=== PATIENT | male | born 1965 | race Caucasian/White ===

== ENCOUNTER 2017-09-28 11:05 | Inpatient (IN) | payer MEDICARE, MEDICAID ==
--- NOTE | 2017-09-28 11:30 | ED ---
General Adult HPI - General Chief complaint: Psychiatric Symptoms Stated complaint: Mental health Time Seen by Provider: 09/28/17 11:16 Source: patient, police Mode of arrival: ambulatory - History of Present Illness Initial comments: The patient is a 51-year-old male with a history of bipolar depression who presents in police custody after being seen at [facility]. The patient allegedly became angry with her staff when he was told that he would not be seeing the therapist that he was initially told he would see. The patient presents with a petition from the psychiatrist at [facility]. Per [place], the patient never became aggressive. The patient states he is new to the area and is trying to get established for mental health. Patient states that normally he is prescribed Seroquel however has not been taking it for the last 4 months. The patient denies any suicidal or homicidal ideations. He denies any visual or auditory hallucinations. Patient denies any alcohol or drug use. - Related Data Home Medications Medication Instructions Recorded Confirmed No Known Home Medications [No 09/28/17 09/28/17 Known Home Medications] Allergies Allergy/AdvReac Type Severity Reaction Status Date / Time No Known Allergies Allergy Verified 09/28/17 12:28 Review of Systems ROS Statement: Those systems with pertinent positive or pertinent negative responses have been documented in the HPI. ROS Other: All systems not noted in ROS Statement are negative. Psychiatric: Reports: as per HPI Past Medical History Past Medical History: No Reported History History of Any Multi-Drug Resistant Organisms: None Reported Additional Past Surgical History / Comment(s): RIGHT HAND SX Past Psychological History: Bipolar Smoking Status: Never smoker Past Alcohol Use History: Occasional Past Drug Use History: None Reported General Exam Limitations: no limitations General appearance: alert, in no apparent distress Head exam: Present: atraumatic, normocephalic Eye exam: Present: normal appearance ENT exam: Present: normal exam Neck exam: Present: normal inspection Respiratory exam: Present: normal lung sounds bilaterally Cardiovascular Exam: Present: regular rate, normal rhythm GI/Abdominal exam: Present: soft Rectal exam: Present: deferred Neurological exam: Present: alert, oriented X3, CN II-XII intact, normal gait Psychiatric exam: Present: normal affect, normal mood Skin exam: Present: warm, dry, intact Course Vital Signs 09/28/17 11:06 Temperature 98 F Pulse Rate 84 Respiratory 18 Rate Blood Pressure 164/73 O2 Sat by Pulse 96 Oximetry Medical Decision Making - Medical Decision Making Patient presents for psychiatric evaluation with a petition from [facility]. He arrives in police custody. On initial evaluation, the patient is calm and cooperative. She denies suicidal or homicidal ideations. He is not having any auditory or visual hallucinations. 1:58 PM Patient was evaluated by behavioral health. I was made aware that the patient also arrived with a clinical certificate from the psychiatrist at [facility]. The decision was made to admit the patient to inpatient psychiatry for further evaluation and treatment. All parties are agreeable with this care plan. Patient was transferred out of the emergency department stable condition. - Lab Data Lab Results 09/28/17 Range/Units 11:33 Urine Opiates Screen Not Detected (NotDetected) Ur Oxycodone Screen Not Detected (NotDetected) Urine Methadone Screen Not Detected (NotDetected) Ur Propoxyphene Screen Not Detected (NotDetected) Ur Barbiturates Screen Not Detected (NotDetected) U Tricyclic Antidepress Not Detected (NotDetected) Ur Phencyclidine Scrn Not Detected (NotDetected) Ur Amphetamines Screen Not Detected (NotDetected) U Methamphetamines Scrn Not Detected (NotDetected) U Benzodiazepines Scrn Not Detected (NotDetected) Urine Cocaine Screen Not Detected (NotDetected) U Marijuana (THC) Screen Not Detected (NotDetected) Disposition Clinical Impression: Bipolar disorder Disposition: ADMITTED IP TO THIS [facility] Condition: Good Is patient prescribed a controlled substance at discharge?: No Decision to Admit Reason: Admit from EC - Out of Hospital Transfer - Req. Specs Out of Hospital Transfer - Requested Specifics: Psychiatric Non-ICU
[2017-09-28 12:17] LABS: Amphetamine Screen,Urine Not Detected (NotDetected); Barbiturate Screen,Urine Not Detected (NotDetected); Benzodiazepines Screen,Urine Not Detected (NotDetected); Cocaine Screen,Urine Not Detected (NotDetected); Methadone Screen, Urine Not Detected (NotDetected); Opiate Screen,Urine Not Detected (NotDetected); Phencyclidine Screen,Urine Not Detected (NotDetected); Tricyclic Antidepressant,Urine Not Detected (NotDetected); Urn Cannabinoid Scrn Not Detected (NotDetected)
[2017-09-28 12:18] LABS: Oxycodone Screen, Urine Not Detected (NotDetected)
[2017-09-28] MEDS ORDERED: MAG HYDROX/AL HYDROX/SIMETH 30 ML CUP PO PRN (13:33)
[2017-09-28] MEDS ORDERED: ACETAMINOPHEN TAB 325 MG TAB PO PRN (13:33)
[2017-09-28] MEDS ORDERED: MAGNESIUM HYDROXIDE 2,400 MG/10 ML CUP PO PRN (13:33)
[2017-09-28 14:05] LABS: Appearance,Urine Clear (Clear); Bilirubin,Urine Negative (Negative); Blood,Urine Negative (Negative); Color,Urine Yellow; Glucose,Urine (UA) Negative (Negative); Ketones,Urine Negative (Negative); Leukocyte Esterase,Urine Negative (Negative); Nitrite,Urine Negative (Negative); Protein,Urine Trace (Negative); Specific Gravity,Urine 1.025 (1.001-1.035); Urobilinogen,Urine <2.0 mg/dL (<2.0)
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
--- NOTE | 2017-09-28 16:40 | P.HPIM ---
History of Present Illness H&P Date: 09/28/17 Chief Complaint: Anger problem 51-year-old male with no past medical history, was at [facility] today, got very angry because a different therapist was coming to see him. He was petitioned by a psychiatrist over at [facility] and transferred to [facility] for further management. He denied having any medical problems in the past except hypertension, he was once prescribed a blood pressure medicine but didn't take it for too long because of side effects. Earlier today he was told that his blood pressure was high. He denied any heart or lung condition. No recent illness, nausea or vomiting, chest pain or abdominal pain, no diarrhea or urinary symptoms. Review of Systems 12 point review of system performed, negative except HPI Past Medical History Past Medical History: No Reported History History of Any Multi-Drug Resistant Organisms: None Reported Past Surgical History: No Surgical Hx Reported Additional Past Surgical History / Comment(s): RIGHT HAND SX Smoking Status: Never smoker Past Alcohol Use History: Occasional Past Drug Use History: None Reported Medications and Allergies Home Medications Medication Instructions Recorded Confirmed Type No Known Home Medications [No 09/28/17 09/28/17 History Known Home Medications] Allergies Allergy/AdvReac Type Severity Reaction Status Date / Time No Known Allergies Allergy Verified 09/28/17 12:28 Physical Exam Vitals: Vital Signs Temp Pulse Pulse Resp BP BP Pulse Ox 09/28/17 14:32 108 H 16 138/118 09/28/17 11:06 98 F 84 18 164/73 96 Intake and Output 09/28/17 09/28/17 09/28/17 06:59 14:59 22:59 Other: Weight 79.379 kg 73.5 kg Constitutional: No acute distress, conversant, pleasant Eyes:Anicteric sclerae, moist conjunctiva, no lid-lag, PERRLA, ENMT: Oropharynx clear, no erythema, exudates Neck: Supple, FROM, no masses, or JVD, No carotid bruits, No thyromegaly Lungs: Clear to auscultation, Clear to percussion, Normal respiratory effort, no accessory muscle use Cardiovascular: Heart regular in rate and rhythm, No murmurs, gallops, or rubs, No peripheral edema Abdominal: Soft, Nontender, no guarding, rebound or rigidity, Normoactive bowel sounds, No hepatomegaly, No splenomegaly, No palpable mass Skin: Normal temperature, tone, texture, turgor, no induration, No subcutaneous nodules, No rash, lesions, No ulcers Extremities: No digital cyanosis, No clubbing, Pedal pulses intact and symmetrical, Radial pulses intact and symmetrical, No calf tenderness Psychiatric: Alert and oriented to person, place and time Neuro: Muscles Strength 5/5 in all 4 extremities, Sensation to light touch grossly present throughout, Cranial nerves II-XII grossly intact, no focal sensory deficits Results Labs: Abnormal Lab Results - Last 24 Hours (Table) 09/28/17 Range/Units 14:00 Urine Protein Trace H (Negative) Assessment and Plan Plan: Bipolar disorder, Impulse control problem Management per psychiatry Questionable hypertension Recheck blood pressures every shift We'll start BP medication if needed Health maintenance Check CBC, CMP, TSH, lipid profile
[2017-09-28] MEDS: QUEtiapine 50 MG TAB PO SCH (20:50)
[2017-09-29] MEDS: QUEtiapine 50 MG TAB PO SCH ×2 (08:15→20:23)
[2017-09-29 10:12] LABS: Basophils % (A) 1 %; Eosinophils # (A) 0.1 k/uL (0-0.7); Eosinophils % (A) 3 %; Lymphocytes # (A) 1.1 k/uL (1.0-4.8); Lymphocytes % (A) 36 %; MCH 28.9 pg (25.0-35.0); MCHC 33.3 g/dL (31.0-37.0); MCV 86.7 fL (80.0-100.0); Mean Platelet Volume 6.7; Monocytes # (A) 0.3 k/uL (0-1.0); Monocytes % (A) 10 %; Neutrophils # (A) 1.4 k/uL (1.3-7.7); Neutrophils % (A) 47 %; Platelet Count 225 k/uL (150-450); RBC 4.85 m/uL (4.30-5.90); RDW 12.7 % (11.5-15.5); WBC 3.1 k/uL (3.8-10.6)
[2017-09-29 10:24] LABS: ALT 41 U/L (21-72); AST 33 U/L (17-59); Albumin 4.2 g/dL (3.5-5.0); Alkaline Phosphatase 51 U/L (38-126); Anion Gap 13 mmol/L; Blood Urea Nitrogen 14 mg/dL (9-20); Calcium 9.3 mg/dL (8.4-10.2); Carbon Dioxide 27 mmol/L (22-30); Chloride 104 mmol/L (98-107); Potassium 4.2 mmol/L (3.5-5.1); Sodium 144 mmol/L (137-145); Total Bilirubin 0.6 mg/dL (0.2-1.3)
[2017-09-29 10:39] LABS: Glucose 43 mg/dL (74-99)
[2017-09-29 10:46] LABS: Glucose,Whole Blood 118 mg/dL (75-99)
[2017-09-29] MEDS: MULTIVITAMINS, THERA 1 EACH TAB PO SCH (11:11)
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
[2017-09-29] MEDS: BACITRACIN 500 UNIT/GM OINT 28.4 GM TUBE TOPICAL SCH (19:59)
[2017-09-29] MEDS ORDERED: QUEtiapine 50 MG TAB PO STA (21:40)
[2017-09-29] MEDS ORDERED: OLANZapine ODT 10 MG TAB PO STA (23:46)
[2017-09-30] MEDS: QUEtiapine 50 MG TAB PO SCH ×2 (08:46→20:46)
[2017-09-30] MEDS: BACITRACIN 500 UNIT/GM OINT 28.4 GM TUBE TOPICAL SCH ×2 (08:46→20:46)
[2017-09-30] MEDS: MULTIVITAMINS, THERA 1 EACH TAB PO SCH (10:58)
--- NOTE | 2017-09-30 12:18 | P.PN ---
Progress Note - Text Progress Note Date: 09/30/17 Interval History: Patient is a 51-year-old male who was seen today and he reports that he required additional Seroquel and Zyprexa last evening which he reports quieted down the voices. He states that he slept after he took those medications last evening. He reports that the voices are still quieter this morning than they have been. He reports no suicidal ideation. Patient states that he's been attending some groups. He reports not feeling sleepy this morning. Mental Status: Appearance/Attitude: Patient is casually dressed, makes good eye contact and is cooperative Behavior: Patient does not display any psychomotor agitation or retardation. Speech/Language: Patient's speech is spontaneous of normal volume and rhythm and he is coherent. Thought Process: Patient is goal-directed there is no evidence of loose association or flight of ideas. Thought Content: Patient reports continued auditory hallucinations, he states they are quieter than they have been, he denies visual hallucinations. Patient remains guarded and paranoid, questioning medication from the nursing staff. Patient states that he still feels suspicious of things. He states that he slept last evening after taking the additional medication. Suicidal/Homicidal Ideation: Patient denies any current suicidal or homicidal ideation. Sensorium/Cognition: Patient is alert and oriented to person, place, and time and his recent and remote memory are grossly intact. Mood/Affect: Patient's mood remains guarded and his affect is slightly blunted Insight/Judgment: Patient's insight and judgment are fair Assessment: Patient reports that his auditory hallucinations decreased with the additional medication last night and staff reports in team meeting that the patient questions medication and needs to see pictures of the medication before he will take them. Patient admits that he continues to feel slightly suspicious. Patient reports that he was not sleeping well last evening until he took the additional medication and was able to sleep. He reports that he is attending some of the groups and activities. Patient reports no side effects from the medication and is not sleepy this morning. Plan: We'll increase the Seroquel to 50 mg in the morning and 150 mg at bedtime to target his psychotic symptoms. Patient was encouraged to attend groups and activities and participate. Patient continues to require hospitalization to further target his psychotic symptoms.
[2017-09-30] MEDS ORDERED: LORazepam 1 MG TAB PO STA (17:49)
[2017-10-01] MEDS: BACITRACIN 500 UNIT/GM OINT 28.4 GM TUBE TOPICAL SCH ×2 (09:15→21:10)
[2017-10-01] MEDS: QUEtiapine 50 MG TAB PO SCH ×2 (09:15→21:10)
[2017-10-01] MEDS: MULTIVITAMINS, THERA 1 EACH TAB PO SCH (09:15)
--- NOTE | 2017-10-01 11:16 | P.PN ---
Progress Note - Text Progress Note Date: 10/01/17 Interval History: Patient is a 51-year-old male who was seen today and he reports that he slept well last evening and has barely hearing the voices this morning. He states he is also less suspicious and paranoid. Patient reports no suicidal ideation. He reports that he is been trying to go to groups but disliked some of the groups because of some of the other patients talking too much. Patient states that he is unclear about where he will be when he leaves the hospital considering going to [place] to be closer to [place] in case he needs to go to court. Patient reports no side effects from the medication. Mental Status: Appearance/Attitude: Patient is casually dressed, makes good eye contact and is cooperative. Behavior: Patient does not display any psychomotor agitation or retardation. Speech/Language: Patient's speech is spontaneous of normal volume and rhythm and he is coherent. Thought Process: Patient is goal-directed there is no evidence of circumstantial or tangential thought and no loose association or flight of ideas. Thought Content: Patient reports that the voices are barely there, no visual hallucinations. Patient states he is not feeling as suspicious or paranoid as he was on admission. Patient states that he is sleeping well and eating well. Patient reports that he is trying to attend groups but was agitated by several of his peers yesterday. Suicidal/Homicidal Ideation: Denies any current suicidal or homicidal ideation Sensorium/Cognition: Patient is alert and oriented to person, place, and time and his recent and remote memory are grossly intact. Mood/Affect: Patient's mood is less guarded and his affect is appropriate Insight/Judgment: Patient's insight and judgment are fair Assessment: Patient states that he slept well last evening and that the auditory hallucinations are barely there this morning. He states that he is less suspicious and patient reports that he is not having any suicidal thoughts. He states that he will attempt to go to groups today but that several patients were agitating him yesterday when he was in group. Patient states that he is unsure of where he will live on discharge. Patient reports no side effects from the medication. Plan: Patient will continue on Seroquel 50 mg in the morning and 150 mg at bedtime, patient and I discussed discharge possibly on Wednesday. Patient needs to confirm where he is going to live to arrange for appropriate follow-up after discharge.
[2017-10-01] MEDS ORDERED: QUEtiapine 50 MG TAB PO STA (16:40)
[2017-10-01] MEDS ORDERED: LORazepam 1 MG TAB PO STA ×2 (20:30→20:32)
[2017-10-01] MEDS ORDERED: ZIPRASIDONE 20 MG VIAL IM PRN (22:03)
[2017-10-02] MEDS: BACITRACIN 500 UNIT/GM OINT 28.4 GM TUBE TOPICAL SCH ×2 (08:55→20:19)
[2017-10-02] MEDS: MULTIVITAMINS, THERA 1 EACH TAB PO SCH (08:56)
[2017-10-02] MEDS: QUEtiapine 50 MG TAB PO SCH ×2 (08:56→20:54)
[2017-10-02] MEDS ORDERED: BACITRACIN 500 UNIT/GM OINT 28.4 GM TUBE TOPICAL SCH (09:00)
[2017-10-02] MEDS: QUEtiapine 50 MG TAB PO PRN (15:57)
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
[2017-10-02] MEDS ORDERED: QUEtiapine 50 MG TAB PO STA (17:13)
[2017-10-03] MEDS: QUEtiapine 50 MG TAB PO PRN ×3 (00:22→12:54)
[2017-10-03] MEDS ORDERED: ZIPRASIDONE 20 MG VIAL IM PRN (07:27)
[2017-10-03] MEDS: QUEtiapine 50 MG TAB PO SCH (09:21)
[2017-10-03] MEDS: BACITRACIN 500 UNIT/GM OINT 28.4 GM TUBE TOPICAL SCH ×3 (09:21→21:35)
[2017-10-03] MEDS: MULTIVITAMINS, THERA 1 EACH TAB PO SCH (09:21)
--- NOTE | 2017-10-03 15:26 | P.PN ---
Progress Note - Text Progress Note Date: 10/03/17 Interval history: Patient is seen in [facility] again today. He was given Geodon IM last night, reports feeling tired today as a side effect. He relays that he was hearing some voices last night. He does state that the Seroquel when necessary has helped with his level of anger. We discussed further titration of Seroquel bedtime dose. He states that the voices are quieter today. Patient states he does not want any further Geodon IM. Mental status exam: He is alert and cooperative with the interview. He is not showing any current agitation. He denies any thoughts of harm to self or others. He states that the voices are quieter today. Plan: We'll titrate up on Seroquel to 200 mg at bedtime to help further with any psychosis symptoms/agitation. Continue to monitor for any symptoms of psychosis or agitation, monitor his ongoing response. Dr. Steve to resume care this patient starting tomorrow.
[2017-10-03] MEDS: QUEtiapine 200 MG TAB PO SCH (21:07)
[2017-10-03] MEDS: hydrOXYzine PAMOATE 25 MG CAP PO PRN (23:41)
[2017-10-04] MEDS: QUEtiapine 50 MG TAB PO PRN (01:36)
[2017-10-04] MEDS: QUEtiapine 50 MG TAB PO SCH (08:33)
[2017-10-04] MEDS: BACITRACIN 500 UNIT/GM OINT 28.4 GM TUBE TOPICAL SCH ×2 (08:33→21:18)
[2017-10-04] MEDS: MULTIVITAMINS, THERA 1 EACH TAB PO SCH (08:34)
--- NOTE | 2017-10-04 11:41 | P.PN ---
Progress Note - Text Progress Note Date: 10/04/17 Interval History: Patient is a 51-year-old male who was seen today and he reported that he thinks the people here lying and staff is not being truthful with him but cannot tell me about what. Patient also stated that he was upset that there was a book about dirty jokes in the library and what would you 1 learn from that. Patient reported that he thought people were breaking into his apartment when he was in outpatient and he hadn't lock placed on his refrigerator but they broke that as well. Patient reports that he is not feeling suspicious thinks that his concerns are all true. Patient reports that he is not going to groups because he doesn't like group activities. Patient states that he has been sleeping. Mental Status: Appearance/Attitude: Patient is casually dressed, makes good eye contact and is cooperative. Behavior: Patient does not display any psychomotor agitation or retardation Speech/Language: Patient's speech is spontaneous and normal volume and rhythm and he is coherent Thought Process: Patient is goal-directed there is no evidence of loose association or flight of ideas Thought Content: Patient denies any auditory or visual hallucinations, he reports continued concerns that the staff is lying to him here, he also reported that he had thought people were breaking into his apartment in the past and had placed a lock on his refrigerator. Patient states that he is sleeping and eating well. Suicidal/Homicidal Ideation: Patient denies any current suicidal or homicidal ideation Sensorium/Cognition: Patient is alert and oriented to person, place, and time and his recent and remote memory are grossly intact Mood/Affect: Patient's mood is guarded and his affect is slightly blunted Insight/Judgment: Patient's insight and judgment are fair Assessment: Patient has had several episodes of becoming quite agitated and suspicious on the unit requiring IM medication and a Mr. najera be called. Patient's Seroquel at been increased to 200 mg at bedtime due to this. Patient continues to feel that staff are lying to him, continues to request seeing pictures of his medications, suspicious of things being placed in his lotion and shampoo, patient states that he was feeling this way on as an outpatient and a placed a lock on his refrigerator because he thought people were breaking into his apartment and stealing food. Patient does not attend groups or activities because he told me that he did not like them. Plan: Patient and I discussed increasing his Seroquel to 100 mg twice a day and 200 mg at bedtime and he was agreeable to this, should the patient not respond to continue to increases in his Seroquel may need to consider a different antipsychotic. Patient continues to require hospitalization to further stabilize his psychotic symptoms.
[2017-10-04] MEDS: QUEtiapine 100 MG TAB PO SCH (13:03)
[2017-10-04] MEDS: QUEtiapine 200 MG TAB PO SCH (21:19)
[2017-10-04] MEDS: hydrOXYzine PAMOATE 25 MG CAP PO PRN (23:48)
[2017-10-05] MEDS: MULTIVITAMINS, THERA 1 EACH TAB PO SCH (08:39)
[2017-10-05] MEDS: QUEtiapine 100 MG TAB PO SCH ×3 (08:39→21:04)
[2017-10-05] MEDS ORDERED: ARTIFICIAL TEARS-HYPROMELLOSE DROPS 15 ML BTL BOTH EYES PRN (09:04)
[2017-10-05] MEDS: BACITRACIN 500 UNIT/GM OINT 28.4 GM TUBE TOPICAL SCH ×2 (09:13→21:07)
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
[2017-10-05] MEDS: hydrOXYzine PAMOATE 25 MG CAP PO PRN (16:53)
[2017-10-06] MEDS: QUEtiapine 100 MG TAB PO SCH ×3 (08:49→21:10)
[2017-10-06] MEDS: MULTIVITAMINS, THERA 1 EACH TAB PO SCH (08:50)
[2017-10-06] MEDS: BACITRACIN 500 UNIT/GM OINT 28.4 GM TUBE TOPICAL SCH ×3 (11:33→21:10)
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
[2017-10-07 07:13] VITALS: BP 109/70; PULSE 95; RESP 12; TEMP 97.5
[2017-10-07] MEDS: QUEtiapine 100 MG TAB PO SCH (08:53)
[2017-10-07] MEDS: MULTIVITAMINS, THERA 1 EACH TAB PO SCH (08:53)
[2017-10-07] MEDS: BACITRACIN 500 UNIT/GM OINT 28.4 GM TUBE TOPICAL SCH (08:54)
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
== END 2017-10-07 12:55 | disposition home or self-care (01) | DRG 885 ==
LOC: EC 11:05 → 3MHU 13:17
PROVIDERS: ADMIT Psychiatry & Neurology Psychiatry; ATTEND Psychiatry & Neurology Psychiatry
DX: F22 Delusional disorders (principal); F31.9 Bipolar disorder, unspecified; I10 Essential (primary) hypertension; Z62.810 Personal history of physical and sexual abuse in childhood
CPT/HCPCS: 80053; 80306; 81003; 82075; 84443; 85025; 93005; 99285

== ENCOUNTER 2017-11-19 03:39 | Emergency (ER) | payer MEDICARE, OTHER ==
[2017-11-19 03:45] VITALS: BP 123/83; PULSE 89; RESP 16; TEMP 98.2
--- NOTE | 2017-11-19 04:09 | ED ---
General Adult HPI - General Chief complaint: Recheck/Abnormal Lab/Rx Stated complaint: Med refill Time Seen by Provider: 11/19/17 03:51 Source: patient Mode of arrival: ambulatory Limitations: no limitations - History of Present Illness Initial comments: 20 years old gentleman he said he ran out of his Seroquel he was supposed to see psychiatrist he missed his appointment me denies any suicidal or homicidal ideation he denies any headache chest pain shortness of breath no medical complaints at all is just requesting a refill on Seroquel he takes 300 mg before going to bed and then he takes 100 mg twice daily. - Related Data Previous Rx's Medication Instructions Recorded QUEtiapine FUMARATE [SEROquel] 300 mg PO HS #14 tab 10/07/17 QUEtiapine [SEROquel] 100 mg PO BID #28 tablet 10/07/17 hydrOXYzine PAMOATE [Vistaril] 25 mg PO TID PRN #20 cap 10/07/17 QUEtiapine FUMARATE [SEROquel] 300 mg PO HS #7 tab 11/19/17 QUEtiapine [SEROquel] 100 mg PO BID #14 tablet 11/19/17 Allergies Allergy/AdvReac Type Severity Reaction Status Date / Time No Known Allergies Allergy Verified 11/19/17 03:45 Review of Systems ROS Statement: Those systems with pertinent positive or pertinent negative responses have been documented in the HPI. ROS Other: All systems not noted in ROS Statement are negative. Past Medical History Past Medical History: No Reported History History of Any Multi-Drug Resistant Organisms: None Reported Past Surgical History: No Surgical Hx Reported Additional Past Surgical History / Comment(s): RIGHT HAND SX Past Psychological History: Bipolar Smoking Status: Never smoker Past Alcohol Use History: Occasional Past Drug Use History: None Reported General Exam - General Exam Comments Initial Comments: General: The patient is awake and alert, in no distress, and does not appear acutely ill. Skin: Skin is warm and dry and no rashes or lesions are noted. Eye: Pupils are equal, round and reactive to light, extra-ocular movements are intact; there is normal conjunctiva bilaterally. Ears, nose, mouth and throat: There are moist mucous membranes and no oral lesions. Neck: The neck is supple, there is no tenderness or JVD. Cardiovascular: There is a regular rate and rhythm. No murmur, rub or gallop is appreciated. Respiratory: To auscultation bilateral, no wheezing no rhonchi no distress respiratory schwarz noticed Gastrointestinal: Soft, non-distended, non-tender abdomen without masses or organomegaly noted. There is no rebound or guarding present. Bowel sounds are unremarkable. Back: There is no tenderness to palpation in the midline. There is no obvious deformity. Musculoskeletal: Normal ROM, no tenderness, There is no pedal edema. There is no calf tenderness or swelling. No cords were appreciated. Neurological: CN II-XII intact, Cranial nerves III through XII are intact. There are no obvious motor or sensory deficits. Coordination appears grossly intact. Speech is normal. Psychiatric: Cooperative, appropriate mood & affect, normal judgment. Eyes any suicidal or homicidal ideation Limitations: no limitations Course Vital Signs 11/19/17 03:43 Temperature 98.2 F Pulse Rate 89 Respiratory 16 Rate Blood Pressure 123/83 O2 Sat by Pulse 98 Oximetry Disposition Clinical Impression: Depression Disposition: HOME SELF-CARE Condition: Good Instructions: Depression (ED) Additional Instructions: He has a psychiatrist he plans to follow-up with him though he missed his appointment is going to call his psychiatrist office first thing in the morning for another appointment Prescriptions: QUEtiapine [SEROquel] 100 mg PO BID #14 tablet QUEtiapine FUMARATE [SEROquel] 300 mg PO HS #7 tab Is patient prescribed a controlled substance at d/c from ED?: No Referrals: None,Stated [Primary Care Provider] - 1-2 days
== END 2017-11-19 04:18 | disposition home or self-care (01) ==
LOC: EC 03:39
DX: F32.9 Major depressive disorder, single episode, unspecified (principal)
CPT/HCPCS: 99281